=== PATIENT | male | born 1990 | race Caucasian/White ===

== ENCOUNTER 2017-07-02 21:15 | Emergency (ER) | payer SELFPAY ==
[~2017-07-02] VITALS: Ht 170.2 cm; Wt 76.7 kg
[2017-07-02 21:48] VITALS: BP 151/91
[2017-07-02] MEDS ORDERED: LIDOCAINE 1% 500 MG/50 ML VIAL INJ ONE (22:10)
[2017-07-02] MEDS ORDERED: LIDOCAINE/PRILOCAINE 2.5% 30 GM TUBE TP ONE (22:37)
[2017-07-02] MEDS ORDERED: NEOMYCIN/POLYMYXIN/BACITRACIN 0.9 GM/1 PKT TP ONE (22:41)
--- NOTE | 2017-07-02 23:40 | NUR ---
TO ER BED 3
--- NOTE | 2017-07-02 23:45 | NUR ---
Patient being evaluated by physician at bedside.
--- NOTE | 2017-07-02 23:50 | NUR ---
TOPICAL LIDOCAINE TO HAND/FINGER ON-NADR AT THIS TIME
--- NOTE | 2017-07-03 00:10 | NUR ---
PATIENT IS A 26 Y/O MALE WHO PRESENTS TO THE ED C/O ABSCESS. PT STATES, "I'VE HAD THIS BOIL ON MY BACK." PT REPORTS X1 MONTH, 7/10 SHARP PAIN ON THE LOWER BACK THAT DOES NOT RADIATE. ABSCESS APPEARS TO BE 1 INCH, RED AND RAISED. PT DENIES N/V/D AND SOB. PT AAOX4, RR EVEN/UNLABORED. PT REPOSITIONED FOR COMFORT, BED IN LOWEST POSITION. ER MD DR. MADDEN NOTIFIED. WILL CONTINUE TO MONITOR.
[2017-07-03 01:25] VITALS: BP 137/80
== END 2017-07-03 01:25 | disposition home or self-care (01) ==
LOC: MED 21:15
DX: L05.01 Pilonidal cyst with abscess (principal); I10 Essential (primary) hypertension
CPT/HCPCS: 10080; 99284; J2001